=== PATIENT | female | born 1995 | race Caucasian/White ===

== ENCOUNTER → 2018-06-15 09:08 | Outpatient (CLI) | payer OTHER, SELFPAY ==
[2018-06-15 09:48] LABS: Absolute Lymphocyte Count 2.56 X10^3/ul (0.83-4.51); Absolute Neutrophil Count 2.5 X10^3/uL (2.0-7.7); Basophil# 0.06 X10^3/uL; Eosinophil# 0.07 X10^3/uL; Eosinophils% 1.2 % (0-5); Hematocrit 41.6 % (37-47); Hemoglobin 13.5 g/dl (12.0-15.0); Lymphocyte # 2.56 X10^3/ul (4.0); Lymphocyte % 43.8 % (19-41); Mean Corp Hgb Conc 32.5 g/gl (32-36); Mean Corpuscular Hgb 26.9 pg (27.0-32.0); Mean Platelet Vol. 10.5 fl (6.2-12.0); Monocyte# 0.68 X10^3/uL; Monocyte% 11.6 % (0-10); Neutrophil # 2.46 X10^3/uL (2.7-7.7); Neutrophil % 42.1 % (47-70); Platelet Count 316 K/mm3 (150-450); RBC Distribution Width CV 14.5 % (11.6-14.6); RBC Distribution Width SD 43.5 fl (35.1-43.9); Red Blood Count 5.01 M/mm3 (4.2-5.4); White Blood Count 5.9 K/mm3 (4.4-11.0)
[2018-06-15 09:50] LABS: POSITIVE COUNT NO; POSITIVE DIFFERENTIAL NO; POSITIVE MORPHOLOGY NO
[2018-06-16 22:08] LABS: Factor VIII Activity 94 % (57-163); von Willebrand Factor Activity 42 % (50-200)
[2018-06-17 14:30] LABS: VWD Studies Interp Report Note (.); von Willebrand Factor (vWF) Ag 52 % (50-200)
== END ==
PROVIDERS: Family Provider Family Medicine; PCP Family Medicine; Referring Provider Obstetrics & Gynecology; Visit Provider Obstetrics & Gynecology
DX: N93.9 Abnormal uterine and vaginal bleeding, unspecified (principal); N94.6 Dysmenorrhea, unspecified; Z82.49 Family history of ischemic heart disease and other diseases of the circulatory system
CPT/HCPCS: 36415; 85025; 85240; 85245; 85246

== ENCOUNTER → 2019-03-16 | Outpatient (CLI) | payer OTHER, SELFPAY ==
[2019-03-16 16:15] VITALS: BMI 20.5
== END | disposition home or self-care (01) ==
LOC: LABSPEC 17:13
PROVIDERS: Family Provider Family Medicine; PCP Family Medicine; Referring Provider Obstetrics & Gynecology; Visit Provider Obstetrics & Gynecology
DX: N89.8 Other specified noninflammatory disorders of vagina (principal)
CPT/HCPCS: 87070; 87205

== ENCOUNTER → 2019-07-27 12:36 | Outpatient (CLI) | payer OTHER, SELFPAY ==
[2019-07-27 09:36] VITALS: BMI 20.4
== END ==
PROVIDERS: Family Provider Family Medicine; PCP Family Medicine; Referring Provider Nurse Practitioner Women's Health; Visit Provider Nurse Practitioner Women's Health
DX: N89.8 Other specified noninflammatory disorders of vagina (principal)
CPT/HCPCS: 87070; 87205

== ENCOUNTER → 2019-08-04 12:14 | Outpatient (CLI) | payer OTHER, SELFPAY ==
[2019-07-27 09:36] VITALS: BMI 20.4
--- NOTE | 2019-08-04 12:16 | US_ITS ---
STUDY: ULTRASOUND OF THE FEMALE PELVIS - COMPLETE REASON FOR EXAM: Female, 23 years old. IUD placement LMP: 07/24/2019 TECHNIQUE: Transvaginal TECHNICAL QUALITY: Adequate. COMPARISON: None. FINDINGS: The uterus is anteverted and is in a midline position. The uterus measures 8.3 x 4.5 x 4.3 cm. Normal uterine cervix. The endometrium measures 3 mm in thickness, and is hyperechoic. There is no demonstrated endometrial mass. There is no demonstrated myometrial mass. I.U.D. - The patient does have an I.U.D. IUD position appears adequate. The right ovary is visualized. The right ovary measures 4.4 x 3.5 x 3.1 cm. Right ovarian cysts are present measuring up to 2.4 x 2.3 x 1.9 cm. This largest cyst contains septations. There is no visualized right adnexal mass or complex lesion. There is normal arterial and normal venous vascularity. The left ovary is visualized. The left ovary measures 3.8 x 2.8 x 3.4 cm. There is a hypoechoic well defined left ovarian mass measuring 2.6 x 2.5 x 2.1 cm. There is no visualized left adnexal mass or complex lesion. There is normal arterial and normal venous vascularity. There is a trace fluid in the cul-de-sac. The pre void volume of the bladder was 796 ml. Polycystic ovary disease: No. US/Pelvic (Non ) IMPRESSION: IUD noted appearing in adequate position. Hypoechoic mass of the left ovary measuring 2.6 x 2.5 x 2.1 cm. Multiple right ovarian cysts measuring up to 2.4 x 2.3 x 1.9 cm. The largest of these cysts demonstrates internal septations. There is a trace free fluid in the cul-de-sac. Electronically Signed: Phong Levin MD at 20:38 EST , Service support ,
--- NOTE | 2019-08-04 12:16 | US_ITS ---
STUDY: ULTRASOUND OF THE FEMALE PELVIS - COMPLETE REASON FOR EXAM: Female, 23 years old. IUD placement LMP: 07/24/2019 TECHNIQUE: Transvaginal TECHNICAL QUALITY: Adequate. COMPARISON: None. FINDINGS: The uterus is anteverted and is in a midline position. The uterus measures 8.3 x 4.5 x 4.3 cm. Normal uterine cervix. The endometrium measures 3 mm in thickness, and is hyperechoic. There is no demonstrated endometrial mass. There is no demonstrated myometrial mass. I.U.D. - The patient does have an I.U.D. IUD position appears adequate. The right ovary is visualized. The right ovary measures 4.4 x 3.5 x 3.1 cm. Right ovarian cysts are present measuring up to 2.4 x 2.3 x 1.9 cm. This largest cyst contains septations. There is no visualized right adnexal mass or complex lesion. There is normal arterial and normal venous vascularity. The left ovary is visualized. The left ovary measures 3.8 x 2.8 x 3.4 cm. There is a hypoechoic well defined left ovarian mass measuring 2.6 x 2.5 x 2.1 cm. There is no visualized left adnexal mass or complex lesion. There is normal arterial and normal venous vascularity. There is a trace fluid in the cul-de-sac. The pre void volume of the bladder was 796 ml. Polycystic ovary disease: No. US/Transvaginal Non- IMPRESSION: IUD noted appearing in adequate position. Hypoechoic mass of the left ovary measuring 2.6 x 2.5 x 2.1 cm. Multiple right ovarian cysts measuring up to 2.4 x 2.3 x 1.9 cm. The largest of these cysts demonstrates internal septations. There is a trace free fluid in the cul-de-sac. Electronically Signed: Phong Levin MD at 20:38 EST , Service support ,
== END ==
PROVIDERS: Family Provider Family Medicine; PCP Family Medicine; Referring Provider Nurse Practitioner Women's Health; Visit Provider Nurse Practitioner Women's Health
DX: Z30.431 Encounter for routine checking of intrauterine contraceptive device (principal)
CPT/HCPCS: 76830; 76856; 93976

== ENCOUNTER → 2019-09-28 13:45 | Outpatient (CLI) | payer OTHER, SELFPAY ==
[2019-07-27 09:36] VITALS: BMI 20.4
--- NOTE | 2019-09-28 13:46 | US_ITS ---
STUDY: ULTRASOUND OF THE FEMALE PELVIS - COMPLETE REASON FOR EXAM: Female, 24 years old. OV CYST -- PATIENT REFUSES TVAG LMP: September 14, 2019 TECHNIQUE: Transabdominal TECHNICAL QUALITY: Adequate. The patient refused transvaginal ultrasound examination. COMPARISON: Comparison is made with prior study dated August 04, 2019. FINDINGS: The uterus is anteverted and is in a midline position. The uterus measures 9.4 cm x 5 cm x 3.9 cm. Normal uterine cervix. The endometrium measures 3.0 mm in thickness, and is . There is no demonstrated endometrial mass. There is no demonstrated myometrial mass. I.U.D. - The patient does have an I.U.D. The right ovary is visualized. The right ovary measures 5.4 cm x 4.7 cm x 3.2 cm. There is a 2.8 cm x 2.5 cm x 2.4 cm septated cyst in the right ovary. This is essentially unchanged. There is no visualized right adnexal mass or complex lesion. There is normal arterial and normal venous vascularity. The left ovary is visualized. The left ovary measures 4 cm x 2.8 cm x 3.6 cm. There is no left ovarian cyst or ovarian mass. There is a 2.7 cm x 2.2 cm x 2.3 cm hypoechoic well-defined ovarian nodule. This is unchanged as well. There is normal arterial and normal venous vascularity. There is no fluid in the cul-de-sac. The pre void volume of the bladder was 633 ml. Polycystic ovary disease: No. US/Pelvic (Non ) IMPRESSION: Stable right ovarian cyst. Stable hypoechoic density in the left ovary. Electronically Signed: Kamran Eagle, at 15:46 EST , Service support ,
== END ==
PROVIDERS: PCP Family Medicine; Referring Provider Obstetrics & Gynecology; Visit Provider Obstetrics & Gynecology
DX: N93.9 Abnormal uterine and vaginal bleeding, unspecified (principal)
CPT/HCPCS: 76856; 93976

== ENCOUNTER → 2019-10-21 10:51 | Outpatient (CLI) | payer OTHER, SELFPAY ==
[2019-10-21 09:30] VITALS: BMI 20.4
[2019-10-21 12:50] LABS: HIV - WCH Non-Reactive (Nonreactive)
[2019-10-21 15:28] LABS: Neisserai gonorrhoeae by PCR Negative (Negative)
[2019-10-21 17:07] LABS: Chlamydia Trachomatis by PCR Negative (Negative); Probe Check PASS; Sample Adequacy Control PASS; Specimen Processing Control PASS
[2019-10-23 03:07] LABS: HCV Quant. RNA PCR HCV Not Detected IU/mL (.); HEPATITIS B SURFACE AG Negative (Negative); Hepatitis A IgM Antibody Negative (Negative); Hepatitis B Core AB IgM Negative (Negative)
[2019-10-23 10:15] LABS: Hep C Antibodies <0.1 s/co ratio (0.0-0.9)
[2019-10-28 01:04] LABS: Rapid Plasmin Reagin (RPR) NONREACTIVE (NONREACTIVE)
== END ==
PROVIDERS: PCP Family Medicine; Referring Provider Obstetrics & Gynecology; Visit Provider Obstetrics & Gynecology
DX: Z20.2 Contact with and (suspected) exposure to infections with a predominantly sexual mode of transmission (principal)
CPT/HCPCS: 36415; 80074; 86592; 86703; 87491; 87522; 87591

== ENCOUNTER → 2020-12-25 | Outpatient (CLI) | payer OTHER, SELFPAY ==
[2020-12-25 14:59] VITALS: BMI 18.1
[2020-12-28 12:15] LABS: HPV Reflexed? NOT INDICATED
== END | disposition home or self-care (01) ==
LOC: LABSPEC 16:34
PROVIDERS: PCP Family Medicine; Referring Provider Obstetrics & Gynecology; Visit Provider Obstetrics & Gynecology
DX: Z12.4 Encounter for screening for malignant neoplasm of cervix (principal)
CPT/HCPCS: 88175; G0145